=== PATIENT | male | born 1995 | race Caucasian/White ===

== ENCOUNTER → 2016-12-12 | Outpatient (CLI) | payer OTHER ==
[2015-05-19 11:00] VITALS: BP 165/94
[~2016-12-12] MED LIST: ACET-704 PO; ACET325T9 PO; AMLO10TA4 PO; Amoxicillin/Potassium Clav PO; Aspirin PO; CLOP75TA27 PO; Ibuprofen PO; ONDA4TAB10 PO
--- NOTE | 2016-12-12 12:45 | CARD ---
APPROVED REPORT EXAM: Two-dimensional and M-mode echocardiogram with Doppler and color Doppler. Other Information Quality : Average Rhythm : NSR INDICATION VSD closure 2D DIMENSIONS RVDd2.6 (2.9-3.5cm)Left Atrium(2D)3.3 (1.6-4.0cm) IVSd1.2 (0.7-1.1cm)Aortic Root(2D)2.8 (2.0-3.7cm) LVDd5.2 (3.9-5.9cm)LVOT Diameter2.1 (1.8-2.4cm) PWd1.1 (0.7-1.1cm)LVDs3.7 (2.5-4.0cm) FS (%) 28.6 %SV70.8 ml LVEF(%)54.7 (>50%) Aortic Valve AoV Peak Hasmukh.101.0cm/sAoV VTI18.9cm AO Peak GR.4.1mmHgLVOT Peak Hasmukh.76.5cm/s LVOT VTI 15.85cmAO Mean GR.3mmHg SEKOU (VMAX)2.59px3OIY (VTI)2.84cm2 Mitral Valve MV E Kvuvkmzz30.1cm/sMV DECEL PCLD885gk MV A Cehwazsx87.7cm/sMV E Mean Gr.1mmHg MV LBJ50wnX/A Ratio2.0 MV A Bzryxebz726saPCF (PHT)3.85cm2 TDI E/Lateral E'4.3E/Medial E'5.9 Pulmonary Valve PV Peak Zxpulqcb01.9cm/sPV Peak Grad.3mmHg RVOT VTI17.2cm Tricuspid Valve TR P. Hozubzuc117tf/sRAP [id number] TR Peak Gr.48gqAqUDVI04tfVv LEFT VENTRICLE The left ventricle is normal size. There is normal left ventricular wall thickness. Left ventricle sy stolic function is normal. The Ejection Fraction is 55-60%. There is normal LV segmental wall motion. The left ventricular diastolic function and filling is normal for age. There is no ventricular septa l defect visualized. RIGHT VENTRICLE The right ventricle is normal size. The right ventricular systolic function is normal. ATRIA The left atrium size is normal. The right atrium size is normal. The interatrial septum is intact wit h no evidence for an atrial septal defect or patent foramen ovale as noted on 2-D or Doppler imaging. AORTIC VALVE The aortic valve is normal in structure and function. The aortic valve is trileaflet. Doppler and Col or Flow revealed no significant aortic regurgitation. There is no significant aortic valvular stenosi s. MITRAL VALVE The mitral valve is normal in structure and function. There is no mitral valve stenosis. Doppler and Color Flow revealed trace mitral regurgitation. TRICUSPID VALVE The tricuspid valve is not well visualized. Doppler and Color Flow revealed mild tricuspid regurgitat ion. The PA pressure was estimated at 23 mmHg. There is no tricuspid valve stenosis. PULMONIC VALVE The pulmonic valve is not well visualized. Doppler and Color Flow revealed no pulmonic valvular regur gitation. There is no pulmonic valvular stenosis. GREAT VESSELS The aortic root is normal in size. Normal pulmonary venous flow (Doppler). The IVC is normal in size and collapses >50% with inspiration. PERICARDIAL EFFUSION There is no evidence of significant pericardial effusion. Critical Notification Critical Value: No <Conclusion> Left ventricle systolic function is normal. The Ejection Fraction is 55-60%. There is normal LV segmental wall motion. The interventricular septum is intact without any evidence of VSD on color flow Trace mitral regurgitation. Mild tricuspid regurgitation. The PA pressure was estimated at 23 mmHg. There is no evidence of significant pericardial effusion.
== END | disposition home or self-care (01) ==
LOC: ECHO 10:50
PROVIDERS: ATTEND Internal Medicine Cardiovascular Disease
DX: I34.0 Nonrheumatic mitral (valve) insufficiency (principal); I07.1 Rheumatic tricuspid insufficiency
CPT/HCPCS: 93306